=== PATIENT | female | born 1975 ===

== ENCOUNTER 2016-12-26 19:57 | Inpatient (IN) | payer MEDICAID ==
[2016-12-26 20:06] VITALS: O2SAT 100; BMI 24.1
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
[2016-12-27 06:34] VITALS: RESP 20
[2016-12-27 09:21] LABS: CHOLESTEROL 177 mg/dL (130-200)
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
[2016-12-27 12:50] LABS: ADD MANUAL DIFF? NO
[2016-12-27 12:54] LABS: BASO # 0.01 K/mm3 (0.0-2.0); BASO % 0.2 % (0.0-3.0); EOS # 0.1 (0.0-0.7); GRAN # 4.29 (1.4-6.5); GRAN % 71.2 % (50.0-68.0); HEMATOCRIT 40.1 % (36.0-48.0); LYMPH # 1.3 (1.2-3.4); LYMPH % 21.1 % (22.0-35.0); MEAN CORPUSCULAR HEMOGLOBIN 26.9 pg (25.0-35.0); MEAN CORPUSCULAR HGB CONC 32.4 g/dl (31.0-37.0); MEAN PLATELET VOLUME 10.2 fl (7.0-11.0); MONO # 0.3 (0.1-0.6); MONO % 5.5 % (1.0-6.0); PLATELET COUNT 266 10^3/uL (120.0-450.0); RED CELL DISTRIBUTION WIDTH 15.6 % (11.5-14.5)
[2016-12-27 12:58] LABS: ALB/GLOB RATIO 1.1 (1.1-1.8); ALKALINE PHOSPHATASE 79 U/L (38-133); ALT/SGPT 24 U/L (7-56); AST/SGOT 24 U/L (15-39); BILIRUBIN,TOTAL 0.4 mg/dL (0.2-1.3); BLOOD UREA NITROGEN 13 mg/dL (7-21); CALCIUM 9.1 mg/dL (8.4-10.5); CARBON DIOXIDE 24 mmol/L (21-33); CHLORIDE 108 mmol/L (98-107); GFR AFRICAN-AMERICAN > 60; GLUCOSE,RANDOM 138 mg/dL (70-110); POTASSIUM 4.2 mmol/L (3.6-5.0); SODIUM 138 mmol/L (132-148); TOTAL PROTEIN 6.9 g/dL (5.8-8.3)
[2016-12-27 14:33] LABS: ERYTHROCYTE SEDIMENTATION RATE 10 mm/hr (0.0-20.0)
[2016-12-28 07:41] LABS: ADD MANUAL DIFF? NO
[2016-12-28 07:47] LABS: BASO # 0.02 K/mm3 (0.0-2.0); BASO % 0.3 % (0.0-3.0); EOS # 0.2 (0.0-0.7); EOS % 2.3 % (1.5-5.0); GRAN # 4.64 (1.4-6.5); GRAN % 63.5 % (50.0-68.0); HEMATOCRIT 41.8 % (36.0-48.0); LYMPH # 1.9 (1.2-3.4); LYMPH % 26.4 % (22.0-35.0); MEAN CORPUSCULAR HEMOGLOBIN 26.3 pg (25.0-35.0); MEAN CORPUSCULAR HGB CONC 32.1 g/dl (31.0-37.0); MEAN PLATELET VOLUME 9.8 fl (7.0-11.0); MONO # 0.6 (0.1-0.6); MONO % 7.5 % (1.0-6.0); PLATELET COUNT 273 10^3/uL (120.0-450.0); RED CELL DISTRIBUTION WIDTH 15.5 % (11.5-14.5); WHITE BLOOD COUNT 7.3 10^3/ul (4.5-11.0)
[2016-12-28 07:59] LABS: ALB/GLOB RATIO 1.3 (1.1-1.8); ALKALINE PHOSPHATASE 75 U/L (38-133); ALT/SGPT 31 U/L (7-56); AST/SGOT 27 U/L (15-39); BILIRUBIN,TOTAL 0.6 mg/dL (0.2-1.3); BLOOD UREA NITROGEN 17 mg/dL (7-21); CALCIUM 9.1 mg/dL (8.4-10.5); CARBON DIOXIDE 25 mmol/L (21-33); CHLORIDE 106 mmol/L (98-107); GFR AFRICAN-AMERICAN > 60; GLUCOSE,RANDOM 101 mg/dL (70-110); MAGNESIUM 1.9 mg/dL (1.7-2.2); PHOSPHOROUS 3.5 mg/dL (2.5-4.5); POTASSIUM 3.8 mmol/L (3.6-5.0); SODIUM 138 mmol/L (132-148); TOTAL PROTEIN 7.6 g/dL (5.8-8.3)
--- NOTE | 2016-12-28 14:38 | CP.PCM.PN ---
Subjective - Date & Time of Evaluation Date of Evaluation: 12/28/16 Time of Evaluation: 10:00 - Subjective Subjective: Patient seen and examined in room 514. Denies any complaints. Tolerating diet well. Ambulating fine. Review of Systems - Constitutional Constitutional: absent: Fever, Chills - EENT Eyes: absent: Blurred Vision Nose/Mouth/Throat: absent: Nasal Congestion - Cardiovascular Cardiovascular: absent: Chest Pain - Respiratory Respiratory: absent: Cough, Dyspnea, Dyspnea on Exertion - Gastrointestinal Gastrointestinal: absent: Abdominal Pain, Nausea, Vomiting - Musculoskeletal Musculoskeletal: absent: Abnormal Gait - Psychiatric Psychiatric: absent: Anxiety, Depression - Hematologic/Lymphatic Hematologic: absent: Easy Bleeding, Easy Bruising Objective - Vital Signs/Intake and Output Vital Signs (last 24 hours): Temp Pulse Resp BP Pulse Ox 97.6 F 83 20 136/89 100 12/27/16 06:33 12/27/16 16:23 12/27/16 06:33 12/27/16 16:23 12/26/16 20:26 - Medications Medications: Current Medications Alprazolam (Xanax) 0.5 mg PO TID PRN; Protocol PRN Reason: Anxiety Last Admin: 12/28/16 09:46 Dose: 0.5 mg Ibuprofen (Motrin Tab) 800 mg PO QID PRN PRN Reason: pain or fever Nicotine (Nicoderm Cq) 1 patch TD DAILY [facility] Last Admin: 12/28/16 09:42 Dose: 1 patch Paroxetine HCl (Paxil) 20 mg PO HS [facility] Last Admin: 12/27/16 21:45 Dose: 20 mg Risperidone (Risperdal Tab) 0.25 mg PO AMHS [facility] PRN Reason: Protocol Last Admin: 12/28/16 09:42 Dose: 0.25 mg Trazodone HCl (Desyrel) 50 mg PO HS [facility] Last Admin: 12/27/16 21:45 Dose: 50 mg Ziprasidone (Geodon Inj) 20 mg IM Q8 PRN; Protocol PRN Reason: Agitation - Labs Labs: 12/28/16 07:00 12/28/16 07:00 - Constitutional Appears: Well, Non-toxic - Head Exam Head Exam: NORMAL INSPECTION - Eye Exam Eye Exam: Normal appearance - ENT Exam ENT Exam: Mucous Membranes Moist - Respiratory Exam Respiratory Exam: NORMAL BREATHING PATTERN - Cardiovascular Exam Cardiovascular Exam: REGULAR RHYTHM - GI/Abdominal Exam GI & Abdominal Exam: Soft, Normal Bowel Sounds - Extremities Exam Extremities Exam: absent: Pedal Edema - Back Exam Back Exam: absent: CVA tenderness (L), CVA tenderness (R) - Neurological Exam Neurological Exam: Alert - Psychiatric Exam Psychiatric exam: Normal Affect - Skin Skin Exam: Normal Color Assessment and Plan - Assessment and Plan (Free Text) Assessment: 1. Patient is a 41-year-old female admitted with bipolar disorder. Continue medications per psychiatrist. 2. History of rheumatoid arthritis; currently no complaints. ESR is normal.no joint swelling noted. 3. CBC, CMP, ESR are normal. 4. Active smoking; smoking cessation is strongly advised. Currently on NicoDerm patch. Patient is medically stable. Follow-up with PMD in [place] upon discharge. Please reconsult as needed.
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
[2016-12-28 20:00] LABS: URINE BILIRUBIN NEGATIVE (NEGATIVE); URINE BLOOD NEGATIVE (NEGATIVE); URINE GLUCOSE (UA) NEGATIVE (NEGATIVE); URINE KETONE NEGATIVE (NEGATIVE); URINE LEUKOCYTE ESTERASE SMALL Leu/uL (NEGATIVE); URINE PROTEIN NEGATIVE mg/dL (<30 mg/dL); URINE UROBILINOGEN 0.2 E.U./dL (<1 E.U./dL)
[2016-12-28 20:04] LABS: URINE APPEARANCE SL CLOUDY (CLEAR); URINE COLOR YELLOW (YELLOW)
[2016-12-28 20:06] LABS: URINE BACTERIA MOD (NEG)
--- NOTE | 2016-12-28 22:55 | CP.PCM.PN ---
<Jona Moe - Last Filed: 12/28/16 22:55> Subjective - Date & Time of Evaluation Date of Evaluation: 12/28/16 Time of Evaluation: 22:54 - Subjective Subjective: This note is in response to a page because [facility] [place] concerned that the patient could possibly have a UTI The patient is asymptomatic, and is not complaining of any urinary symptoms; no dysuria/urgency/frequency. Therefore it is inappropriate to medically treat an asymptomatic albeit "positive" UA. As from the last medical team note, the patient is cleared medically as per Dr. Avendano Thank you for this consult. Dr. Jona Moe PGY1 Night Float Objective - Vital Signs/Intake and Output Vital Signs (last 24 hours): Temp Pulse Resp BP Pulse Ox 97.6 F 89 20 134/89 100 12/27/16 06:33 12/28/16 15:57 12/27/16 06:33 12/28/16 15:57 12/26/16 20:26 - Medications Medications: Current Medications Alprazolam (Xanax) 0.5 mg PO TID PRN; Protocol PRN Reason: Anxiety Last Admin: 12/28/16 17:31 Dose: 0.5 mg Ibuprofen (Motrin Tab) 800 mg PO QID PRN PRN Reason: pain or fever Nicotine (Nicoderm Cq) 1 patch TD DAILY NARENDRA Last Admin: 12/28/16 09:42 Dose: 1 patch Paroxetine HCl (Paxil) 20 mg PO HS [facility] Last Admin: 12/28/16 21:49 Dose: 20 mg Risperidone (Risperdal Tab) 0.25 mg PO AMHS NARENDRA PRN Reason: Protocol Last Admin: 12/28/16 21:49 Dose: 0.25 mg Trazodone HCl (Desyrel) 50 mg PO HS NARENDRA Last Admin: 12/28/16 21:48 Dose: 50 mg Ziprasidone (Geodon Inj) 20 mg IM Q8 PRN; Protocol PRN Reason: Agitation - Labs Labs: 12/28/16 07:00 12/28/16 07:00 <Diana Charlton - Last Filed: 12/29/16 05:17> Objective - Vital Signs/Intake and Output Vital Signs (last 24 hours): Temp Pulse Resp BP Pulse Ox 97.6 F 89 20 134/89 100 12/27/16 06:33 12/28/16 15:57 12/27/16 06:33 12/28/16 15:57 12/26/16 20:26 - Medications Medications: Current Medications Alprazolam (Xanax) 0.5 mg PO TID PRN; Protocol PRN Reason: Anxiety Last Admin: 12/28/16 17:31 Dose: 0.5 mg Ibuprofen (Motrin Tab) 800 mg PO QID PRN PRN Reason: pain or fever Nicotine (Nicoderm Cq) 1 patch TD DAILY NARENDRA Last Admin: 12/28/16 09:42 Dose: 1 patch Paroxetine HCl (Paxil) 20 mg PO HS NARENDRA Last Admin: 12/28/16 21:49 Dose: 20 mg Risperidone (Risperdal Tab) 0.25 mg PO AMHS NARENDRA PRN Reason: Protocol Last Admin: 12/28/16 21:49 Dose: 0.25 mg Trazodone HCl (Desyrel) 50 mg PO HS NARENDRA Last Admin: 12/28/16 21:48 Dose: 50 mg Ziprasidone (Geodon Inj) 20 mg IM Q8 PRN; Protocol PRN Reason: Agitation - Labs Labs: 12/28/16 07:00 12/28/16 07:00 Attending/Attestation - Attestation I have personally seen and examined this patient.: No I have fully participated in the care of the patient.: Yes I have reviewed all pertinent clinical information, including history, physical exam and plan: Yes Notes (Text): 12/29/16 05:17 Agree with Payal Iyer.
[2016-12-29 07:21] VITALS: BP 130/90; PULSE 82; TEMP 98.1
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
== END 2016-12-29 14:53 | disposition left against medical advice (07) | DRG 427 ==
LOC: ED 19:57 → ERH 20:24 → PSYC 21:01
PROVIDERS: ADMIT Psychiatry & Neurology Psychiatry; ATTEND Psychiatry & Neurology Psychiatry
DX: F43.23 Adjustment disorder with mixed anxiety and depressed mood (principal); R45.851 Suicidal ideations; F31.81 Bipolar II disorder; F41.0 Panic disorder [episodic paroxysmal anxiety]; F43.10 Post-traumatic stress disorder, unspecified; F17.210 Nicotine dependence, cigarettes, uncomplicated; F12.10 Cannabis abuse, uncomplicated; M06.9 Rheumatoid arthritis, unspecified; M19.90 Unspecified osteoarthritis, unspecified site; Z62.810 Personal history of physical and sexual abuse in childhood; Z82.61 Family history of arthritis; Z81.8 Family history of other mental and behavioral disorders; Z83.3 Family history of diabetes mellitus; Z84.1 Family history of disorders of kidney and ureter; F41.1 Generalized anxiety disorder; Z59.0 Homelessness